=== PATIENT | male | born 1940 | race Caucasian/White ===

== ENCOUNTER 2017-07-10 11:28 | Emergency (ER) | payer OTHER, MEDICARE ==
[~2017-07-10] VITALS: Ht 172.7 cm; Wt 105.9 kg
[~2017-07-10 11:28] MED LIST: Augmentin PO; BACTRIM,SEPT1 TABLET PO; BENEMID500 MG PO; CIPRO500 MG PO; COLACE100 MG PO; COLBENEMID PO; COLCHICINE PO; COMBIGAN O20 DROP/5 BOTH EYES; Combigan Ophth Soln LEFT EYE; FIBER THERAPY0.52 GM PO; FISH OIL 1,2001 EAC3 PO; HYTRIN2 MG PO; LUMIGAN 0.50 DROP/2. BOTH EYES; Levaquin PO; Lumigan 0.03% Ophth BOTH EYES; OPTIVE EYE BOTH EYES; PRESERVISIO1 CAPSULE PO; PROBENECID PO; PROBENECID500 MG PO; PYRIDIUM200 MG PO; PreserVision Softgel PO; TYLENOL EXTRA500 MG PO; ZESTRIL,PRINIVI20 MG PO; [UNRECOGNIZED DRUG - OTHER] TP
[2017-07-10 12:11] LABS: BASOPHIL COUNT 0.1 K/uL (0-0.1); EOSINOPHIL (%) 4.8 % (0-5); EOSINOPHIL COUNT 0.5 K/uL (0-0.3); IMMATURE GRANULOCYTE (%) 0.5 % (0.0-0.7); IMMATURE GRANULOCYTE COUNT 0.1 K/uL; INSTRUMENT ABS NEUTROPHIL CT 8.2 K/uL; LYMPHOCYTE COUNT 0.7 K/uL (1.0-2.8); MCH 32.3 PG (29.0-34.0); MCHC 33.9 G/DL (30.0-36.0); MCV 95.2 FL (86-99); MEAN PLAT.VOLUME 8.7 uM^3 (9.0-12.4); MONOCYTE (%) 6.3 % (3-12); MONOCYTE COUNT 0.6 K/uL (0-0.8); NEUTROPHIL (%) 80.5 % (45-76); NEUTROPHIL COUNT 8.2 K/uL (1.8-6.4); PLATELET COUNT 138 K/uL (156-360); RBC DIS.WIDTH-CV 12.6 % (11.8-14.6); RBC DIS.WIDTH-SD 43.3 % (39-53); RED BLOOD COUNT 4.62 M/uL (4.00-5.50); WHITE BLOOD COUNT 10.2 K/uL (4.1-10.2)
[2017-07-10 12:20] LABS: CHLORIDE 104 mEq/L (99-109); POTASSIUM 4.2 mEq/L (3.7-5.4); SODIUM 137 mEq/L (136-147)
[2017-07-10 12:22] LABS: GLUCOSE 108 mg/dL (70-99)
[2017-07-10 12:23] LABS: ANION GAP 7 MEQ/L (2-14)
[2017-07-10 12:26] LABS: GFR ESTIMATE (CALCULATED) > 59 mL/min/
[2017-07-10 12:27] LABS: UREA NITROGEN (BUN) 16 mg/dL (9-23)
[2017-07-10 12:32] LABS: TROP-I INTERPRETATION NEGATIVE; TROPONIN-I < 0.01 ng/mL (0.0-0.30)
[2017-07-10 13:19] LABS: ADD MIUA? NO; BILIRUBIN NEGATIVE; BLOOD NEGATIVE; COLOR AMBER ((YELLOW)); GLUCOSE (STRIP) NEGATIVE; KETONES NEGATIVE; LEUKOCYTES NEGATIVE; NITRITE NEGATIVE; PROTEIN (STRIP) NEGATIVE; SPECIFIC GRAVITY 1.015 (1.000-1.030); UCUL ADDED? NO; UROBILINOGEN 0.2 MG/DL (0.2-1.0)
[2017-07-10] MEDS ORDERED: DORZOLAMIDE HCL10 ML LEFT EYE (16:10)
[2017-07-10] MEDS ORDERED: OMEPRAZOLE20 MG PO (16:11)
[2017-07-10] MEDS ORDERED: AZULFIDINE500 MG PO (16:11)
[2017-07-10] MEDS ORDERED: CRANBERRY TABL1 EACH PO (16:12)
[2017-07-10] MEDS ORDERED: XANAX0.25 MG PO ×2 (16:13→16:14)
[2017-07-10] MEDS ORDERED: ALIGN4 MG PO (16:13)
[2017-07-10] MEDS ORDERED: FENTANYL1 EAC5 TD (16:14)
[2017-07-10] MEDS ORDERED: FLUOXETINE HCL40 MG PO (16:14)
[2017-07-10] MEDS ORDERED: CALMOSEPTINE O120 GM TP (16:16)
[2017-07-10] MEDS ORDERED: VITAMIN D10000 UNIT PO (16:16)
[2017-07-10 17:32] VITALS: BP 157/109
[2017-07-10] MEDS ORDERED: TYLENOL EXTRA500 MG PO (21:48)
[2017-07-10] MEDS ORDERED: FIBER THERAPY0.52 GM PO (21:51)
[2017-07-10] MEDS ORDERED: ERGOCALCIF50000 UNIT PO (21:53)
[2017-07-10] MEDS ORDERED: LUMIGAN 0.50 DROP/22 BOTH EYES (21:54)
[2017-07-10] MEDS ORDERED: PRESERVISIO1 CAPSULE PO (21:55)
[2017-07-10] MEDS ORDERED: COMBIGAN O20 DROP/5 BOTH EYES (21:55)
[2017-07-10 21:56] LABS: Estimated Average Glucose 82 mg/dL (70-123); HEMOGLOBIN A1c (GLYCOHEMOGLOB) 4.5 % HGB (Below 5.7)
[2017-07-10 22:13] LABS: HDL CHOLESTEROL 48 MG/DL (Desirable>=40); LDL CHOLESTEROL 97 mg/dL (Desirable<100); NON-HDL CHOLESTEROL 112 mg/dL (Desirable<160); TOTAL CHOLESTEROL 160 mg/dL (Desirable<200); TRIGLYCERIDES 74 MG/DL (Normal: <150)
[2017-07-11] MEDS ORDERED: ANTIVERT25 MG PO (11:41)
== END 2017-07-10 17:33 ==
LOC: EME 11:28
PROVIDERS: Emergency Medicine
DX: R42 Dizziness and giddiness (principal); R29.6 Repeated falls; R53.1 Weakness; Z91.81 History of falling; G35 Multiple sclerosis; I10 Essential (primary) hypertension; Z87.440 Personal history of urinary (tract) infections; Z87.442 Personal history of urinary calculi; Z87.891 Personal history of nicotine dependence
CPT/HCPCS: 70450; 71010; 80048; 80061 GA; 81003; 83036 GA; 84484; 85025; 93005; 99281; 99285; G8978 GP CM; G8979 GP CM; G8987 GO CM; G8988 GO CK

== ENCOUNTER 2017-07-10 19:01 | Inpatient (IN) | payer OTHER, MEDICARE ==
[~2017-07-10] VITALS: Ht 172.7 cm; Wt 96.2 kg
[~2017-07-10 19:01] MED LIST changes: +ALIGN4 MG PO; +AZULFIDINE500 MG PO; +CALMOSEPTINE O120 GM TP; +CRANBERRY TABL1 EACH PO; +DORZOLAMIDE HCL10 ML LEFT EYE; +FENTANYL1 EAC5 TD; +FLUOXETINE HCL40 MG PO; +OMEPRAZOLE20 MG PO; +VITAMIN D10000 UNIT PO; +XANAX0.25 MG PO
[2017-07-10] MEDS ORDERED: TYLENOL EXTRA500 MG PO (21:48)
[2017-07-10] MEDS ORDERED: FIBER THERAPY0.52 GM PO (21:51)
[2017-07-10] MEDS ORDERED: ERGOCALCIF50000 UNIT PO (21:53)
[2017-07-10] MEDS ORDERED: LUMIGAN 0.50 DROP/22 BOTH EYES (21:54)
[2017-07-10] MEDS ORDERED: PRESERVISIO1 CAPSULE PO (21:55)
[2017-07-10] MEDS ORDERED: COMBIGAN O20 DROP/5 BOTH EYES (21:55)
[2017-07-11 00:14] VITALS: BP 142/94
[2017-07-11 03:28] VITALS: BP 126/81
[2017-07-11 07:13] LABS: METH RESISTANT S AUREUS PCR NEGATIVE (NEGATIVE); PROBE CHECK PASS; SPECIMEN PROCESSING CONTROL PASS
[2017-07-11 08:00] VITALS: BP 146/88
[2017-07-11] MEDS ORDERED: ANTIVERT25 MG PO (11:41)
[2017-07-11 12:24] LABS: POINT-OF-CARE METER ID UU13113700
[2017-07-11 15:55] VITALS: BP 171/94
[2017-07-11 18:00] VITALS: BP 172/82
[2017-07-11 19:58] VITALS: BP 143/83
[2017-07-12] VITALS (7 sets, daily range): BP systolic 103–166; BP diastolic 67–99
[2017-07-12 06:51] LABS: BASOPHIL COUNT 0.1 K/uL (0-0.1); EOSINOPHIL (%) 6.5 % (0-5); EOSINOPHIL COUNT 0.5 K/uL (0-0.3); HEMATOCRIT 40.4 % (38.0-50.0); IMMATURE GRANULOCYTE (%) 0.8 % (0.0-0.7); IMMATURE GRANULOCYTE COUNT 0.1 K/uL; INSTRUMENT ABS NEUTROPHIL CT 5.3 K/uL; MCH 32.1 PG (29.0-34.0); MCHC 33.7 G/DL (30.0-36.0); MCV 95.3 FL (86-99); MEAN PLAT.VOLUME 9.1 uM^3 (9.0-12.4); MONOCYTE (%) 8.5 % (3-12); MONOCYTE COUNT 0.6 K/uL (0-0.8); NEUTROPHIL (%) 70.5 % (45-76); NEUTROPHIL COUNT 5.3 K/uL (1.8-6.4); PLATELET COUNT 116 K/uL (156-360); RBC DIS.WIDTH-CV 12.6 % (11.8-14.6); RBC DIS.WIDTH-SD 43.9 % (39-53); RED BLOOD COUNT 4.24 M/uL (4.00-5.50); WHITE BLOOD COUNT 7.6 K/uL (4.1-10.2)
[2017-07-12 07:24] LABS: ANION GAP 10 MEQ/L (2-14); CHLORIDE 99 MEQ/L (99-109); GFR ESTIMATE (CALCULATED) > 59 mL/min/; GLUCOSE 102 mg/dL (70-99); HDL CHOLESTEROL 44 MG/DL (Desirable>=40); LDL CHOLESTEROL 72 mg/dL (Desirable<100); NON-HDL CHOLESTEROL 90 mg/dL (Desirable<160); POTASSIUM 3.8 MEQ/L (3.7-5.4); SAMPLE HEMOLYSIS CHECK 0; SAMPLE ICTERIC CHECK 0; SAMPLE LIPEMIA CHECK 0; SODIUM 135 MEQ/L (136-147); TOTAL CHOLESTEROL 134 mg/dL (Desirable<200); TRIGLYCERIDES 91 MG/DL (Normal: <150); UREA NITROGEN (BUN) 22 mg/dL (9-23)
[2017-07-13 03:37] VITALS: BP 129/82
[2017-07-13 06:54] LABS: ANION GAP 8 MEQ/L (2-14); CHLORIDE 103 MEQ/L (99-109); GFR ESTIMATE (CALCULATED) > 59 mL/min/; GLUCOSE 92 mg/dL (70-99); POTASSIUM 3.9 MEQ/L (3.7-5.4); SAMPLE HEMOLYSIS CHECK 0; SAMPLE ICTERIC CHECK 0; SAMPLE LIPEMIA CHECK 0; SODIUM 139 MEQ/L (136-147); UREA NITROGEN (BUN) 18 mg/dL (9-23)
[2017-07-13 07:07] VITALS: BP 145/83
[2017-07-13 15:09] VITALS: BP 109/56
[2017-07-13 19:42] VITALS: BP 162/94
[2017-07-14 00:01] VITALS: BP 124/84
[2017-07-14 07:05] VITALS: BP 140/81
[2017-07-14] MEDS ORDERED: PRAVASTATIN SOD40 MG PO (09:39)
[2017-07-14] MEDS ORDERED: ASPIR-LOW81 MG PO (09:39)
[2017-07-14 11:37] VITALS: BP 115/72
== END 2017-07-14 13:43 | DRG 65 ==
LOC: EME 19:01 → 5WEST 19:28 → EDOF 19:28 → ENRESERV 19:35 → 5WEST 23:48 → ENRESERV 07-11 15:53 → 5WEST 07-11 15:56 → 5SOUTH 07-11 15:56 → 5WEST 07-11 15:56 → ENRESERV 07-11 16:27 → 5SOUTH 07-11 17:41
PROVIDERS: Internal Medicine
DX: I63.9 Cerebral infarction, unspecified (principal); G35 Multiple sclerosis; E87.1 Hypo-osmolality and hyponatremia; M21.372 Foot drop, left foot; G89.29 Other chronic pain; R26.2 Difficulty in walking, not elsewhere classified; M10.9 Gout, unspecified; F40.240 Claustrophobia; K21.9 Gastro-esophageal reflux disease without esophagitis; H40.9 Unspecified glaucoma; M19.90 Unspecified osteoarthritis, unspecified site; F41.9 Anxiety disorder, unspecified; E66.9 Obesity, unspecified; F32.9 Major depressive disorder, single episode, unspecified; N40.0 Benign prostatic hyperplasia without lower urinary tract symptoms; Z53.20 Procedure and treatment not carried out because of patient's decision for unspecified reasons; Z68.33 Body mass index [BMI] 33.0-33.9, adult; Z85.828 Personal history of other malignant neoplasm of skin; Z79.899 Other long term (current) drug therapy; Z87.891 Personal history of nicotine dependence
CPT/HCPCS: 70450; 70553; 71010; 80048; 80061; 80061 GA; 81003; 82948; 83036; 83036 GA; 84484; 85025; 87641; 93005; 93306; 93880; 99281; 99285; G0378; G8978 GP CM; G8979 GP CM; G8987 GO CM; G8988 GO CK; J1644